=== PATIENT | female | born 1955 | race Caucasian/White ===

== ENCOUNTER 2017-03-15 19:05 | Inpatient (IN) | payer OTHER ==
[~2017-03-15] VITALS: Ht 157.5 cm; Wt 69.1 kg
[2017-03-20] MEDS ORDERED: PACERONE200 MG PO (08:01)
[2017-03-20] MEDS ORDERED: VENTOLIN HFA8 GM IH (08:01)
[2017-03-20] MEDS ORDERED: SYNTHROID88 MCG PO (08:01)
[2017-03-20] MEDS ORDERED: LIPITOR80 MG PO (08:02)
[2017-03-20] MEDS ORDERED: BUPROPION HCL75 MG PO (08:02)
[2017-03-20] MEDS ORDERED: COUMADIN4 MG PO (08:03)
[2017-03-20] MEDS ORDERED: ZANTAC150 MG PO (08:03)
[2017-03-20] MEDS ORDERED: LEVAQUIN750 MG PO (08:04)
[2017-03-20] MEDS ORDERED: LOPRESSOR50 MG PO (08:09)
[2017-03-20] MEDS ORDERED: LANOXIN125 MCG PO (08:10)
[2017-03-20] MEDS ORDERED: LASIX20 MG PO (08:10)
== END 2017-03-19 13:40 | disposition home or self-care (01) | DRG 291 ==
LOC: ER 19:05 → ICU 22:02 → MED 22:02
PROVIDERS: ADMIT Internal Medicine
DX: I11.0 Hypertensive heart disease with heart failure (principal); J96.01 Acute respiratory failure with hypoxia; J18.9 Pneumonia, unspecified organism; K72.00 Acute and subacute hepatic failure without coma; I50.1 Left ventricular failure, unspecified; I48.91 Unspecified atrial fibrillation; E03.9 Hypothyroidism, unspecified; I25.10 Atherosclerotic heart disease of native coronary artery without angina pectoris; F17.210 Nicotine dependence, cigarettes, uncomplicated; Z79.01 Long term (current) use of anticoagulants; E78.5 Hyperlipidemia, unspecified; I25.2 Old myocardial infarction; F32.9 Major depressive disorder, single episode, unspecified; K21.9 Gastro-esophageal reflux disease without esophagitis; I73.9 Peripheral vascular disease, unspecified; I65.21 Occlusion and stenosis of right carotid artery; Z79.899 Other long term (current) drug therapy; Z82.49 Family history of ischemic heart disease and other diseases of the circulatory system; R79.1 Abnormal coagulation profile
CPT/HCPCS: 36415; 93306; J1160; J1940; J3370; J7050

== ENCOUNTER 2017-03-15 19:05 | Emergency (ER) | payer OTHER ==
[2017-03-20] MEDS ORDERED: PACERONE200 MG PO (08:01)
[2017-03-20] MEDS ORDERED: SYNTHROID88 MCG PO (08:01)
[2017-03-20] MEDS ORDERED: VENTOLIN HFA8 GM IH (08:01)
[2017-03-20] MEDS ORDERED: BUPROPION HCL75 MG PO (08:02)
[2017-03-20] MEDS ORDERED: LIPITOR80 MG PO (08:02)
[2017-03-20] MEDS ORDERED: COUMADIN4 MG PO (08:03)
[2017-03-20] MEDS ORDERED: ZANTAC150 MG PO (08:03)
[2017-03-20] MEDS ORDERED: LEVAQUIN750 MG PO (08:04)
[2017-03-20] MEDS ORDERED: LOPRESSOR50 MG PO (08:09)
[2017-03-20] MEDS ORDERED: LASIX20 MG PO (08:10)
[2017-03-20] MEDS ORDERED: LANOXIN125 MCG PO (08:10)
== END 2017-03-15 22:01 | disposition critical access hospital (66) ==
LOC: ER 19:05
DX: J96.00 Acute respiratory failure, unspecified whether with hypoxia or hypercapnia (principal); J44.9 Chronic obstructive pulmonary disease, unspecified; I11.0 Hypertensive heart disease with heart failure; I50.9 Heart failure, unspecified; I48.91 Unspecified atrial fibrillation; I25.2 Old myocardial infarction; E78.00 Pure hypercholesterolemia, unspecified; Z79.82 Long term (current) use of aspirin; Z79.02 Long term (current) use of antithrombotics/antiplatelets; Z79.899 Other long term (current) drug therapy
CPT/HCPCS: 36415; 96361; 96365; 96375; J1940